=== PATIENT | male | born 2005 | race American Indian/Alaskan Native ===

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

== ENCOUNTER 2025-05-12 10:38 | Inpatient (IN) | payer OTHER ==
[~2025-05-12] VITALS: Ht 177.8 cm; Wt 52.2 kg
[2025-05-12] MEDS ORDERED: POTASSIUM99 M1 PO (10:59)
[2025-05-12 11:19] LABS: BASOPHILS 0.2 % (0.2-1.2); EOSINOPHILS 0 % (0.8-7.0); LYMPHOCYTES 6.2 % (21.8-53.1); MCH 29.6 PG (25.7-32.2); MCHC 35.4 g/dL (32.3-36.5); MCV 83.9 fL (79.0-92.2); MONOCYTES 6.0 % (5.3-12.2); NEUTROPHILS 87.3 % (34.0-67.9); RBC 5.70 M/uL (4.63-6.08)
[2025-05-12 11:31] LABS: ALT (SGPT) 37.0 U/L (14-59); AST (SGOT) 31.0 U/L (15-37); GLOMERULAR FILTRATION RATE,EST 36.0 mL/min (>60); PROTEIN, TOTAL 8.7 g/dL (6.4-8.2); UREA NITROGEN 50.0 mg/dL (7-18)
[2025-05-12] MEDS ORDERED: SODIUM CHLORIDE 0.9% 1,000 ML IV PRN (11:45)
[2025-05-12] MEDS ORDERED: POTASSIUM CHLORIDE 10 MEQ TABCR PO ONE (11:45)
[2025-05-12] MEDS ORDERED: POTASSIUM CHLORIDE 10 MEQ/100 ML BAG IV ONE (11:45)
--- NOTE | 2025-05-12 13:23 | EKG ---
[facility] [address] [facility] [place] [address] Signed Normal sinus rhythm with sinus arrhythmia T wave abnormality, consider inferior ischemia Prolonged QT Abnormal ECG Confirmed by Wilbert Cobos DO ([id number]) on 05/12/2025 1:23:02 PM Electronically Signed By: WILBERT COBOS DO 05/12/25 1323 PATIENT NAME: ZINATERESITANIDIA JR Electrocardiogram DATE OF : [birth year] PHYSICIAN: WILBERT COBOS DO REPORT #: [id number] REPORT IS CONFIDENTIAL AND NOT TO BE RELEASED WITHOUT AUTHORIZATION
[2025-05-12 15:11] LABS: GLOMERULAR FILTRATION RATE,EST 46.0 mL/min (>60); UREA NITROGEN 51.0 mg/dL (7-18)
[2025-05-12] MEDS ORDERED: LACTATED RINGER'S 1,000 ML IV ONE (15:15)
[2025-05-12] MEDS ORDERED: POTASSIUM CHLORIDE 40 MEQ in DEXTROSE 5% 250 ML IV ONE (15:30)
[2025-05-12 15:58] VITALS: BP 107/59
[2025-05-12] MEDS ORDERED: ACETAMINOPHEN 325 MG TAB PO PRN (16:15)
--- NOTE | 2025-05-12 16:30 | NUR ---
Spoke with pts parents Brandan and Tonya. Pt has autism and is resting with his earphones in place. [place] and is able to do chores with animals. Per mom pt can write. Pt looks away whenever I look at him. Mom states he does not tolerate noise and is very afraid of dogs. She states he does not get violent but will tap his ear phones and say no if he is stressed. He does not use any DME and per dad he is stable when he walks. Mom states they work with a Dr. Burgos, Tele Health Therapist. They are also working with Behavior Health and pt has a Behavior Plan through the [facility]. Family cannot remember the name. She states concern as they monitor pt for vomiting and he has had increased vomiting. [facility] They do not have financial concerns or safety concerns. Mom states she does not currently use any Autism groups. She is not aware of any in our area. She does not mind if I attempt to find resources for her. Will fu tomorrow.
--- NOTE | 2025-05-12 17:20 | NUR ---
PATIENT REFUSING DINNER TRAY AT THIS TIME. PROVIDED WITH POPCICLE X2, PATIENT ATE WELL. PATIENT'S MOM AT BEDSIDE AND STATES PATIENT USUALLY EATS FRUIT WELL, BUT REFUSED IT TONIGHT "I THINK IT'S FROM HIM THROWING UP, SO THE COLD POPCICLE PROBABLY FEELS GOOD ON HIS THROAT". PATIENT/FAMILY WITHOUT FURTHER NEEDS AT THIS TIME. CALL LIGHT AND PERSONAL BELONGINGS ARE WITHIN REACH.
[2025-05-12 18:38] VITALS: BP 108/64
--- NOTE | 2025-05-12 18:42 | NUR ---
PT IN BED WITH HEAD PHONES ON. RESPONDS TO VERBAL COMMANDS WELL. PARENTS IN ROOM AND THEY HAVE THE CALL LIGHT. PT WANTS ORANGE POPCICLE -I WENT TO GO GET ONE -
[2025-05-12] MEDS ORDERED: LACTATED RINGER'S 1,000 ML IV SCH (19:00)
--- NOTE | 2025-05-12 19:41 | NUR ---
REPORT RECEIVED FROM HOWARD VILLANUEVA. PATIENT IN BED WITH HOB RAISED, EYES OPEN, CHEST RISE EQUAL AND UNLABORED. PARENTS AT BEDSIDE. IV INFUSING WITHOUT DIFFICULTY. PARENTS AND PATIENT DENY CONCERNS AT THIS TIME. CALL LIGHT AND PERSONAL BELONGINGS IN REACH OF PATIENT.
[2025-05-12 20:25] VITALS: BP 111/88
--- NOTE | 2025-05-12 20:35 | NUR ---
PATIENT IN BED WITH HOB RAISED, EYES OPEN, CHEST RISE EQUAL AND UNLABORED. FATHER AT BEDSIDE. FATHER INQUIRES ABOUT MEDICATION FOR SLEEP, NOTES PATIENT HAS NOT SLEPT ANYWHERE EXCEPT AT HOME SO FAR. ASSESSMENT AND VITAL SIGNS COMPLETED. SCHEDULED MEDICATIONS ADMINISTERED. IV FLUID INFUSING WITHOUT DIFFICULTY. PATIENT BELONGINGS AND CALL LIGHT IN REACH OF PATIENT.
[2025-05-12] MEDS ORDERED: GUANFACINE HCL 1 MG TAB PO SCH (21:00)
[2025-05-12] MEDS ORDERED: MELATONIN 3 MG TAB PO SCH (21:30)
--- NOTE | 2025-05-12 21:51 | NUR ---
SPOKE WITH MD REGARDING FATHERS CONCERNS FOR PATIENT SLEEP TONIGHT. MD PLACED ORDER FOR MELATONIN. PATIENT IN BED WITH HOB RAISED. EYES OPEN, CHEST RISE EQUAL AND UNLABORED. IV FLUID INFUSING WITHOUT DIFFICULTY. SLEEP MEDICATION ADMINISTERED. PATIENT AND FATHER DENY FURTHER CONCERNS AT THIS TIME. CALL LIGHT AND PERSONAL BELONGINGS IN REACH OF PATIENT.
[2025-05-12 22:06] VITALS: BP 111/88
--- NOTE | 2025-05-12 23:00 | NUR ---
PATIENT IN BED, EYES CLOSED. CHEST RISE EQUAL AND UNLABORED. FATHER IN ROOM WITH PATIENT. IV FLUID INFUSING WITHOUT DIFFICULTY. PATIENT CALL LIGHT AND PERSONAL BELONGINGS IN REACH OF PATIENT. NO IMMEDIATE NEEDS NOTED AT THIS TIME.
[2025-05-13] VITALS (9 sets, daily range): BP systolic 100–111; BP diastolic 66–72
--- NOTE | 2025-05-13 01:06 | NUR ---
PATIENT IN BED WITH HOB RIASED, EYES CLOSED, CHEST RISE EQUAL AND UNLABORED. FATHER AT BEDSIDE. IV FLUID INFUSING WITHOUT DIFFICULTY. CALL LIGHT AND PERSONAL BELONGINGS IN REACH OF PATIENT. NO APPARENT NEEDS NOTED AT THIS TIME.
--- NOTE | 2025-05-13 02:15 | NUR ---
PATIENT IN BED ON LEFT SIDE WITH HOB RAISED. EYES CLOSED, CHEST RISE EQUAL AND UNLABORED. IV FLUID INFUSING WITHOUT DIFFICULTY. CALL LIGHT AND PERSONAL BELONGINGS IN REACH OF PATIENT. NO APPARENT NEEDS NOTED AT THIS TIME.
--- NOTE | 2025-05-13 03:47 | NUR ---
PATIENT IN BED ON BACK WITH HOB RAISED, EYES OPEN, CHEST RISE EQUAL AND UNLABORED. FATHER AT BEDSIDE. IV FLUID INFUSING WITHOUT DIFFICULTY. CALL LIGHT AND PERSONAL BELONGINGS IN REACH OF PATIENT. NO APPARENT NEEDS NOTED AT THIS TIME.
[2025-05-13 05:18] LABS: BASOPHILS 0.4 % (0.2-1.2); EOSINOPHILS 0.8 % (0.8-7.0); LYMPHOCYTES 28.9 % (21.8-53.1); MCH 29.6 PG (25.7-32.2); MCHC 34.2 g/dL (32.3-36.5); MCV 86.7 fL (79.0-92.2); MONOCYTES 10.2 % (5.3-12.2); NEUTROPHILS 59.6 % (34.0-67.9); RBC 4.12 M/uL (4.63-6.08)
[2025-05-13 05:38] LABS: ALT (SGPT) 28.0 U/L (14-59); AST (SGOT) 23.0 U/L (15-37); GLOMERULAR FILTRATION RATE,EST 83.0 mL/min (>60); PHOSPHORUS, INORGANIC 2.9 mg/dL (2.5-4.9); PROTEIN, TOTAL 6.1 g/dL (6.4-8.2); UREA NITROGEN 40.0 mg/dL (7-18)
--- NOTE | 2025-05-13 05:39 | NUR ---
PATIENT IN BED WITH HOB RAISED, EYES OPEN, CHEST RISE EQUAL AND UNLABORED. VITAL SIGNGS, I AND O, AND FOCUSED ASSESSMENT COMPLETE. PATIENT AND FATHER DENY CONCERNS AT THIS TIME. CALL LIGHT AND PERSONAL BELONGINGS IN REACH OF PATIENT. IV FLUIDS INFUSING WITHOUT DIFFICULTY.
--- NOTE | 2025-05-13 07:08 | NUR ---
REPORT RECIEVED FROM HOWARD PATEL AND HOWARD KEBEDE. PATIENT RESTING IN BED WITH HIS EYES CLOSED, EVEN AND UNLABORED RESPIRATIONS NOTED. PATIENT'S FATHER AT BEDSIDE, FRESH COFFEE PROVIDED. NO FURTHER NEEDS AT THIS TIME. WHITE BOARD UPDATED. IV FLUIDS INFUSING PER ORDER. CALL LIGHT AND PERSONAL BELONGINGS ARE WITHIN REACH.
--- NOTE | 2025-05-13 07:43 | NUR ---
UR CLINICAL REVIEW" MCG-PER MCG REVIEW MEETS INPT FOR DEHYDRATION WITH HYPOKALEMIA WITH NEED FOR IV FLUIDS AND SERIAL LABS [facility]HP PLUS INPT 05/12/25 @ 1517 ORDER MATCHES REG NO AUTH REQUIRED PER [place] MEDICAID GUIDELINES DISCHARGE TO HOME WITH PARENTS WHEN STABLE 05/14/25
[2025-05-13] MEDS ORDERED: POTASSIUM CHLORIDE 20 MEQ/15 ML CUP PO ONE (08:00)
--- NOTE | 2025-05-13 08:30 | NUR ---
Pt was discussed in 8:[address] Leon. He will order telepsych to visit with pt. I asked if anyone has any info for this family for resources in our area. One of our pharmacists states he has infor and will give it to the family.
--- NOTE | 2025-05-13 08:48 | NUR ---
PATIENT MEDICATION SCANNED, BUT PATIENT REFUSED TO TAKE MEDICATION FROM THIS RN. MEDICATION GIVEN TO PATIENT'S FATHER THAT STATES HE WILL ATTEMPT TO GIVE IT TO PATIENT. PATIENT IV FLUSHED WITH 10ML OF NS, DRESSING IS INTACT, IV IS SALINE LOCKED. TELE REMOVED PER ORDER. PATIENT AND FAMILY WITHOUT FURTHER NEEDS AT THIS TIME. CALL LIGHT AND PERSONAL BELOGNIGNS ARE WITHIN REACH.
[2025-05-13] MEDS ORDERED: HYDROXYZINE PAM25 MG PO (08:55)
--- NOTE | 2025-05-13 09:00 | NUR ---
LENKA from Dr. Leon to place tele-psych consult.
--- NOTE | 2025-05-13 09:33 | NUR ---
DR SMITH AT BEDSIDE. PATIENT'S FATHER REPORTS THAT PATIENT IS STILL REFUSING TO TAKE LIQUID POTASSIUM.
[2025-05-13] MEDS ORDERED: POTASSIUM CHLORIDE 40 MEQ in DEXTROSE 5% 250 ML IV ONE (09:45)
--- NOTE | 2025-05-13 09:57 | NUR ---
MED REC COMPLETE
[2025-05-13] MEDS ORDERED: LACTATED RINGER'S 1,000 ML IV SCH (10:00)
--- NOTE | 2025-05-13 10:40 | NUR ---
Spoke with pts dad, Brandan. He was very happy as Zoraida was able to provide him with several resources in our area for Autism. Per dad, pt would not work with telehealth. He states they will go home when fluids are complete. We did discuss pt eating disorder. I gave the dad the phone number for [facility] and let him know I can send the chart and schedule them for an appt if they wish to pursue treatment for pts eating disorder. He will let me know when his arrives if they want to proceed.
--- NOTE | 2025-05-13 10:55 | NUR ---
PATIENT RESTING IN BED WITH HIS BLANKET COVERING HIS FACE, EVEN AND UNLABORED RESPIRATIONS NOTED. PATIENT FATHER AT BEDSIDE AND IS WITHOUT ANY NEEDS AT THIS TIME. CALL LIGHT AND PERSONAL BELONGINGS ARE WITHIN REACH.
--- NOTE | 2025-05-13 11:44 | NUR ---
PATIENT CONTINUES TO REST IN BED WITH BLANKET COVERING HIS FACE, EVEN AND UNLABORED RESPIRATIONS NOTED. PATIENT'S FATHER AT BEDSIDE AND IS WITHOUT ANY NEEDS AT THIS TIME. CALL LIGHT AND PERSONAL BELONGINGS ARE WITHIN REACH.
[2025-05-13] MEDS ORDERED: PHARMACY RENAL DOSE ADJUSTMENT 1 DOSE MISC PO SCH (12:00)
--- NOTE | 2025-05-13 12:30 | NUR ---
VISITED DURING SPIRITUAL CARE ROUNDS. PT APPEARED TO BE SLEEPING. DID NOT DISTURB. PROVIDED PRAYER.
--- NOTE | 2025-05-13 12:55 | NUR ---
PATIENT RESTING IN BED WITH BLANKET OVER HIS HEAD, PATIENT CHANGED POSITIONS WHILE THIS RN WAS IN ROOM, STILL WITH BLANKET OVER HIS HEAD. CUP OF COFFEE PROVIDED TO PATIENT'S FATHER AT BEDSIDE. FAMILY WITHOUT FURTHER NEEDS AT THIS TIME. CALL LIGHT AND PERSONAL BELONGINGS ARE WITHIN REACH.
[2025-05-13] MEDS ORDERED: THIAMINE HCL 200 MG/2 ML VIAL IV SCH (14:15)
[2025-05-13] MEDS ORDERED: FOLIC ACID 1 MG/0.2 ML ML IV SCH (14:15)
[2025-05-13] MEDS ORDERED: DEXTROSE 5% - NACL 0.45% 1,000 ML IV SCH (14:15)
[2025-05-13 14:19] LABS: BLOOD/HGB, URINE NEGATIVE (Negative); KETONE, URINE SMALL (Negative); LEUK ESTERASE, URINE NEGATIVE (negative); NITRITE, URINE NEGATIVE (negative)
[2025-05-13 14:25] LABS: EPITHELIAL CELLS, URINE SQUAMOUS 1+ /lpf (0-1+)
[2025-05-13 14:26] LABS: BACTERIA, URINE NONE SEEN /hpf (negative); CASTS, URINE HYALINE 1+ \\lpf; CRYSTALS, URINE NONE SEEN (0-1+); REFLEX CULTURE, URINE No (No)
--- NOTE | 2025-05-13 15:50 | NUR ---
1540 PATIENT MEDICATED PER EMAR. IV FLUSHED WITH 10ML OF NS, DRESSING INTACT, IV FLUIDS INFUSING PER ORDER. PATIENT FATHER LET THIS RN KNOW THAT THEY ARE WANTING "TO GO HOME BECAUSE HE'S PERKED UP AGAIN AFTER WE WENT TO [facility]". DR SMITH NOTIFIED AND IN TO TALK WITH PATIENT'S PARENTS.
--- NOTE | 2025-05-13 15:56 | NUR ---
Nutrition consult received. Patient has Autism and has been self-induced vomiting for several years. He lives with his parents and receives care through [facility]. I was unable to visit with the patient and family today. This afternoon patient was agitated after an imaging test that the charge nurse, Gisela, said to not disturb him this afternoon. Due to patient's history of bulemia and Autism, he likely would benefit from an inpatient eating disorder facility.
[2025-05-14] MEDS ORDERED: GUANFACINE HCL 1 MG TAB PO SCH (09:00)
== END 2025-05-13 16:30 | disposition home or self-care (01) | DRG 887 ==
LOC: ED 10:38 → MS 15:24
PROVIDERS: Emergency Medicine; ADMIT Student in an Organized Health Care Education/Training Program; ATTEND Student in an Organized Health Care Education/Training Program
DX: F50.20 Bulimia nervosa, unspecified (principal); N17.9 Acute kidney failure, unspecified; E87.3 Alkalosis; E87.6 Hypokalemia; F84.0 Autistic disorder; E86.0 Dehydration; I95.9 Hypotension, unspecified; Z79.899 Other long term (current) drug therapy
CPT/HCPCS: 36415; 71046; 76705; 80048; 80053; 81001; 83690; 83735; 84100; 84484; 85025; 87651; 93005; 93010; A9270; J3411; J3480; J7030; J7060; J7121